=== PATIENT | male | born 1990 | race Caucasian/White ===

== ENCOUNTER 2019-07-02 03:40 | Emergency (ER) | payer SELFPAY ==
[2019-07-02 03:46] VITALS: BP 141/83; PULSE 71; RESP 16; TEMP 36.6; O2SAT 97; BMI 26.5
--- NOTE | 2019-07-02 03:47 | ED_ITS ---
Entered by Tammy Colbert, acting as scribe for Rosemarie Connor HPI - Headache General: Chief Complaint: Headache Stated Complaint: GARRETT Time Seen by Provider: 07/02/19 03:47 Source: patient Mode of arrival: ambulatory Limitations: no limitations History of Present Illness: HPI Narrative: 29 yo m came to the er for a headache, neck pain, sore throat and a toothache. Onset was last night. MD elicited complaint: headache Onset (ago): day(s) (last night) Onset description: suddenly Severity: mild Quality & Timing: aching and sharp Associated symptoms: Reports no associated symptoms Treatments prior to arrival: none Review of Systems General: Reports: other (negative unless marked) ENMT: Reports: throat pain and dental pain Neuro: Reports: headache PFSH ED PFSH: Social History Smoking and tobacco status: current every day smoker Physical Exam Const: COMMON NORMALS: no apparent distress, oriented x3, no limitations, healthy appearing and well nourished EXAM LIMITATIONS: no altered mental status GENERAL APPEARANCE: cooperative, well kempt and well developed ORIENTATION/CONSCIOUSNESS: Yes awake HENMT: COMMON NORMALS: normocephalic, head/scalp atraumatic, hearing grossly normal bilaterally, external ears normal, EAC's normal, external nose normal and moist oral mucous membranes HEAD & SCALP: normal to inspection, normocephalic and atraumatic FACE & SINUS: normal facial exam, face symmetric and other (Lower mandibular swelling. No lymph node involvement of the sternocleidomastoid anterior posterior chain.) NOSE: external nose normal and nares normal EXTERNAL EAR: Yes external ears normal EXTERNAL AUDITORY CANAL: EAC's normal OTHER: Right inferior most posterior molar with obvious dental carry. No obvious dental abscess. Eye: COMMON NORMALS: PERRL, EOMs intact bilaterally, conjunctivae normal and no scleral icterus GENERAL EYE: normal appearance of both eyes and normal light reflex CONJUNCTIVA: Yes conjunctivae normal SCLERA: sclerae normal CORNEA: Yes corneas normal PUPIL: Yes PERRL DIRECT OPHTHALMOSCOPY: Yes normal light reflex Neck/C-Spine: COMMON NORMALS: full ROM, no lymphadenopathy, supple, no meningeal signs and no JVD GENERAL: Yes normal visual inspection and Yes trachea midline CERVICAL SPINE: Yes cervical ROM normal Chest: COMMONS NORMALS: inspection of chest normal and palpation of chest normal Resp: COMMON NORMALS: normal respiratory effort, no retractions, no use of accessory muscles and clear to auscultation bilaterally EFFORT & INSPECTION: Yes able to speak in complete sentences AUSCULTATION: clear to auscultation bilaterally Cardio: COMMON NORMALS: no JVD, regular rate, regular rhythm, S1 normal heart sound, S2 normal heart sound, no gallops, no clicks, no murmurs and no rub JUGULAR VENOUS DISTENTION: no JVD RATE: regular rate RHYTHM: regular rhythm HEART SOUNDS: S1 normal and S2 normal GI: COMMON NORMALS: soft to palpation, non-tender, no hepatosplenomegaly and no masses INSPECTION: Yes normal to inspection PALPATION: Yes soft and Yes no hepatosplenomegaly : COMMON NORMALS: Yes no CVA tenderness BLADDER/KIDNEY EXAM: Yes no CVA tenderness Back/Pelvis: COMMON NORMALS: no CVA tenderness, thoracic and lumbar spine normal to inspection, no thoracic nor lumbar tenderness and thoraco-lumbar ROM normal Extremity: COMMON NORMALS: normal to inspection, full ROM, normal capillary refill, no joint enlargement, no clubbing, cyanosis or edema and no calf tenderness Neuro: COMMON NORMALS: oriented x3, CN's II-XII intact bilaterally, moves all extremities, no focal motor deficits and no sensory deficits noted MENINGEAL SIGNS: Yes no meningeal signs Psych: COMMON NORMALS: mental status grossly normal, thought process normal, cooperative, affect normal, speech normal and activity/motor behavior normal APPEARANCE: Yes well kempt SPEECH: Yes normal speech THOUGHT PROCESS: normal thought process Skin: COMMON NORMALS: no rashes or lesions noted, skin turgor normal, no jaundice, no petechiae and no mottling GENERAL SKIN EXAM: no rashes or lesions noted and turgor normal Course Vital Signs: Vital signs: Vital Signs Temperature 98 F 07/02/19 03:46 Pulse Rate 67 07/02/19 04:28 Respiratory Rate 16 07/02/19 04:28 Blood Pressure 120/76 07/02/19 04:28 Pulse Oximetry 97 07/02/19 04:28 MDM - Headache MDM Narrative: Medical decision making narrative: Gilson comes in with a headache caused by a bad tooth on the right side. There is no sign of Sang's angina, deep space infection, airway involvement or otherwise. We will treat his pain here but also address his underlying condition. Discharge Plan Discharge Patient Disposition: Home, Self-Care Clinical Impression: Pain, dental Headache Qualifiers: Headache type: unspecified Headache chronicity pattern: acute headache Intractability: not intractable Qualified Code(s): R51 - Headache Condition: Stable Prescriptions: [place] 5-325 mg tablet 1 tab PO Q6H PRN (Reason: pain) 5 Days Qty: 8 RF: 0 Cleocin HCl 150 mg capsule 300 mg PO Q6H 10 Days Qty: 80 RF: 0 Discharge Orders: Discharge Order (Routine); Ordered 07/02/19 Ordered By: Rosemarie Connor Discharge Diet: Advance as tolerated Discharge Activity: Increase activity as tolerated Patient Instructions: Dental Caries (Cavities), Dental Caries (ED) Activity Restrictions/Additional Instructions: Please return to the ER immediately for any of the signs or symptoms listed on your discharge instruction sheets, worsening/changing of your symptoms, you are not getting better as quickly as expected, or for ANY other cause or concerns. Discharge Date/Time: 07/02/19 04:25 Coding Level of Care Code ED Attending Anesthesiologist for g Fwd The documentation recorded by the Filemon stanley Stephanie Lyn, accurately reflects the service I personally performed and the decisions made by Nikolas gleason Eli N Jul 02, 2019 03:40
--- NOTE | 2019-07-02 04:06 | PC.NURSE ---
Introduced self to patient and initiated vital signs. Patient presents A&O x 4. NAD, ABCs intact, MAEW and agreeable to treatment. Respirations are even and unlabored. Pt states that the chief complaint for the ER visit today is due to headache and jaw pain from infected tooth Pt denies any vision disturbances or lightheadedness. Bed left in lowest position in semi-fowlers with side rails up.Reassured patient of needs and will continue to monitor.
[2019-07-02] MEDS: clindamycin 150 mg Capsule 300 MG PO (04:13)
[2019-07-02] MEDS: HYDROcodone-acetaminophen 5-325 mg Tablet 1 TAB PO (04:13)
[2019-07-02] MEDS: ketorolac 60 mg/2 mL INJ IM (04:15)
[2019-07-02] MEDS: penicillin g (L-A) 1,200,000 unit/2 mL Syr 1200000 UNIT IM (04:15)
[2019-07-02 04:28] VITALS: BP 120/76; PULSE 67; RESP 16; O2SAT 97
== END 2019-07-02 05:03 | disposition home or self-care (01) ==
PROVIDERS: Emergency Provider Emergency Medicine
DX: K08.89 Other specified disorders of teeth and supporting structures (principal); R51 Headache; F17.200 Nicotine dependence, unspecified, uncomplicated
CPT/HCPCS: 96372; 99281; 99283; J0561; J1885

== ENCOUNTER 2020-06-26 11:22 | Emergency (ER) | payer SELFPAY ==
[2020-06-26 11:28] VITALS: BP 129/75; PULSE 73; RESP 14; TEMP 36.7; O2SAT 99; BMI 26.5
--- NOTE | 2020-06-26 11:37 | W.ED.MALEGU ---
HPI - Male Genitourinary General: Chief complaint: Urogenital-Male Stated complaint: BLOOD IN URINE Time Seen by Provider: 06/26/20 11:32 Source: patient Mode of arrival: ambulatory Limitations: no limitations History of Present Illness: HPI Narrative: Patient is a 30-year-old male who presents to ED today with a complaint of hematuria that he noticed this morning. According to patient he has had 2 episodes of urination today that started with normal stream set but ended with a small amount of dark red blood. He is complaining of some very mild dysuria. When asked specifically about flank pain he states he is having a small amount of pain to the right side of his back but states I normally have pain all over from working . No history of nephrolithiasis. He is not having any genital lesions or penile discharge. He does report unprotected intercourse with a new sexual partner recently. Denies testicular pain/swelling. No fevers. MD Complaint: other (hematuria ) Onset (ago): hour(s) Severity: mild Associated symptoms: Reports dysuria, hematuria, nausea and vomiting (x 1 today); Deny urinary incontinence Review of Systems Const: Denies: fever(s), chills, body aches, fatigue or malaise Card: Denies: chest pain Resp: Denies: dyspnea GI: Reports: nausea and vomiting (x 1 today); Denies: abdominal pain, change in bowel habits or change in stool character : Reports: dysuria and hematuria; Denies: flank pain, difficulty urinating, urinary frequency, urinary urgency, urinary hesitancy, urinary dribbling, urinary incontinence, genital pain, genital lesions, penile discharge, testicular pain or scrotal swelling Musc: Reports: back pain (R lower back pain); Denies: neck pain, extremity pain, extremity swelling, joint pain or joint swelling Skin/Breast: Denies: rash Neuro: Denies: headache(s), numbness in extremities, weakness in extremities or sensory changes PFSH ED PFSH: Social History Smoking and tobacco status: current every day smoker Physical Exam Const: COMMON NORMALS: no acute distress, average body habitus, patient oriented x3, no limitations, healthy appearing, alert and well nourished HENMT: COMMON NORMALS: normocephalic and atraumatic HEAD & SCALP: normocephalic and atraumatic GI: COMMON NORMALS: Normal to inspection, nondistended, normoactive bowel sounds present, Soft to palpation, No hepatosplenomegaly present and no masses INSPECTION: Yes normal to inspection PALPATION: Yes Soft to palpation, Yes Tenderness to palpation present (GI) (mild suprapubic) and Yes No hepatosplenomegaly present : COMMON NORMALS: Yes no CVA tenderness (mild tenderness to R lower back) BLADDER/KIDNEY EXAM: Yes no CVA tenderness (mild tenderness to R lower back) Back/Pelvis: COMMON NORMALS: no CVA tenderness (mild tenderness to R lower back), thoracic and lumbar spine normal to inspection, no thoracic nor lumbar tenderness and thoraco-lumbar ROM normal Neuro: COMMON NORMALS: patient oriented x3 SENSORIUM/ORIENTATION: Yes alert Skin: COMMON NORMALS: no rashes or lesions noted GENERAL SKIN EXAM: no rashes or lesions noted Course Vital Signs: Vital signs: Vital Signs Temperature 98.0 F 06/26/20 11:28 Pulse Rate 73 06/26/20 11:28 Respiratory Rate 14 06/26/20 11:28 Blood Pressure 129/75 06/26/20 11:28 Pulse Oximetry 99 06/26/20 11:28 MDM - Male MDM Narrative: Medical decision making narrative: Patient does not complain of any penile discharge. He states dysuria is minimal. He denies any concern for STDs related to his recent sexual encounter. Urine is leukocyte negative. At this time it does not sound suspicious for STD-will go ahead and run chlamydia/gonorrhea test off his urine and he will be called with results if positive. CT scan was negative for stone. Blood work is non-concerning. Will refer him to Dr. Mitchell for further evaluation. Return to ED precautions given. Lab Data: Labs: Lab Results 06/26/20 06/26/20 06/26/20 Range/Units 11:44 12:15 12:15 WBC 10.4 H (4.0-10.0) 10^3/ uL RBC 5.26 (4.1-5.3) 10^6/u L Hgb 16.3 (11.7-16.6) g/dL Hct 47.5 (42.0-52.0) % MCV 90.3 (80-94) fL MCH 31.0 (28.0-34.0) pg MCHC 34.3 (30.0-36.0) g/dL RDW 12.3 (12.1-15.1) % Plt Count 190 (130-400) 10^3/c mm MPV 10.7 H (7.4-10.4) fL Neut % (Auto) 70.9 % Lymph % (Auto) 20.0 % [place] % (Auto) 6.0 % Eos % (Auto) 2.3 % Baso % (Auto) 0.5 % Neut # (Auto) 7.35 (1.8-7.7) 10^3/u L Lymph # (Auto) 2.1 (0.8-4.8) 10^3/u L [place] # (Auto) 0.6 (0.2-0.9) 10^3/u L Eos # (Auto) 0.2 (0.0-0.8) 10^3/u L Baso # (Auto) 0.1 (0.0-0.1) 10^3/u L Nucleated RBC % (a uto) 0 % Nucleated RBCs # 0.0 /100WBC Sodium 137 (136-145) mmol/L Potassium 4.3 (3.5-5.1) mmol/L Chloride 104 (98-107) mmol/L Carbon Dioxide 24 (22-29) mmol/L Anion Gap 13.3 (5-19) BUN 11 (6-20) mg/dL Creatinine 0.8 (0.7-1.2) mg/dL GFR Calculation 112.8 (90-130) mL/min Glucose 87 (65-115) mg/dL Calculated Osmolal ity 283 L (285-295) mOsm/k g Calcium 9.3 (8.5-10.5) mg/dL Urine Color Yellow (Yellow) Urine Appearance Clear (CLEAR) Urine pH 5 (5-7) Ur Specific Gravit y 1.025 (1.005-1.030) Urine Protein Neg (Negative) Urine Glucose (UA) Norm (Normal) Urine Ketones Negative (Negative) Urine Blood 2+ H (Negative) Urine Nitrate Negative (Negative) Urine Bilirubin Neg (Negative) Urine Urobilinogen Norm (Negative) mg/dL Ur Leukocyte Angela ase Negative (Negative) Urine RBC 0-4 H (0-2) /hpf Urine WBC 5-10 H (0-5) /hpf Ur Squamous Epith Cells None (0-5) /hpf Amorphous Sediment Not Reportable Urine Bacteria Trace (NONE) /hpf Urine Mucus 1+ /hpf Imaging Data: CT renal: Radiologist's impression: [address] [address] [address] Scan Report Signed Patient: Jose Yates Unit #: [id number] : 1990 Age/Sex: 30 / M ADM Date: 06/26/20 Loc: ER Room/Bed: Attending Dr: Ordering Provider/Ordering MD: Tessa Everett Date of Service: 06/26/20 Procedure(s): CT kidney stone 48847 Accession Number(s): [id number] Report Number: [id number] WS: [id number] CT ABDOMEN AND PELVIS NONCONTRAST HISTORY: R back pain; hematuria TECHNIQUE: Imaging performed through the abdomen and pelvis. Coronal and sagittal reformats are submitted. All CT scans at [facility] use at least one of these dose optimization techniques: automated exposure control; mA and/or kV adjustment per patient size (includes targeted exams where dose is matched to clinical indication); or iterative reconstruction. DLP: 1317.25 mGy.cm COMPARISON: None available. Lower thorax: Lung bases are clear. Visualized heart is normal. No hiatal hernia. Liver: Normal size liver. No mass or bile duct dilatation. Gallbladder: Normal gallbladder. Pancreas: Normal size and attenuation. Normal pancreatic duct. No pancreatitis or mass. Spleen: Normal. Adrenal glands: Normal. No mass. Right kidney: Normal size kidney with no mass or hydronephrosis. Left kidney: Normal size kidney with no mass or hydronephrosis. Aorta: Normal abdominal aorta, no aneurysm or atherosclerosis. No free fluid, intraperitoneal air or significant lymphadenopathy.. Shotty retroperitoneal lymph nodes. GI tract: Normal appendix. No GI tract obstruction or diverticulosis. Abdominal wall: Negative. No hernia. Pelvis: Prostate gland calcifications. Mild enlargement of the seminal vesicles. Negative urinary bladder. Osseous structures: Unremarkable. CT/CT kidney stone [id number] IMPRESSION: 1. No renal calcifications or obstruction. 2. Normal appendix. 3. No acute abdominal abnormalities. Dictated By: Germania Dunn DO Signed By: Germania Dunn DO Signed Date/Time: 06/26/20 1228 DD/ 1225 Discharge Plan Discharge Patient Disposition: Home Clinical Impression: Hematuria Qualifiers: Hematuria type: gross Qualified Code(s): R31.0 - Gross hematuria Condition: Stable Prescriptions: No Action No Known Home Medications RF: 0 Discharge Orders: Discharge ED (Routine); Ordered 06/26/20 Ordered By: Tessa Everett Referrals: Chuck Mitchell MD [Physician] - Patient Instructions: Opioid Safety Activity Restrictions/Additional Instructions: [employer] is committed to fighting the nationwide opiate epidemic. We are providing ALL patients with information regarding opiate safety. If you received opiate pain medication during your stay or if you received a prescription for opiate pain medication-please review this handout. If not, you may disregard. Thank you. As discussed we will refer you to Dr. Mitchell/urology for further evaluation of your hematuria. Need to return to the emergency department for severe flank pain, fevers greater than 100.4, severe abdominal pain, or any other concerns you may have. Coding Level of Care Code ED Jitterbug Operator for Jackig Fwd Exam Detailed
[2020-06-26 12:05] LABS: Glucose Urine UA Norm (Normal); Ketones Urine Negative (Negative); Protein Urine Neg (Negative); Specific Gravity, Urine 1.025 (1.005-1.030); Urine Appearance Clear (CLEAR); Urine Color Yellow (Yellow); pH Urine 5 (5-7)
[2020-06-26 12:07] LABS: Add Urine Microscopic? YES; Bilirubin Urine Neg (Negative); Blood Urine 2+ (Negative); Leukocyte Esterase Urine Negative (Negative); Nitrate Urine Negative (Negative); Urobilinogen Urine Norm (Negative)
[2020-06-26 12:11] LABS: RBC Urine 0-4 /hpf (0-2)
[2020-06-26 12:12] LABS: Bacteria Urine TRACE /hpf
--- NOTE | 2020-06-26 12:12 | CT_ITS ---
WS: [id number] CT ABDOMEN AND PELVIS NONCONTRAST HISTORY: R back pain; hematuria TECHNIQUE: Imaging performed through the abdomen and pelvis. Coronal and sagittal reformats are submi tted. All CT scans at [facility] use at least one of these dose optimization techniques: automated exposure control; mA and/or kV adjustment per patient size (includes targeted exams where d ose is matched to clinical indication); or iterative reconstruction. DLP: 1317.25 mGy.cm COMPARISON: None available. Lower thorax: Lung bases are clear. Visualized heart is normal. No hiatal hernia. Liver: Normal size liver. No mass or bile duct dilatation. Gallbladder: Normal gallbladder. Pancreas: Normal size and attenuation. Normal pancreatic duct. No pancreatitis or mass. Spleen: Normal. Adrenal glands: Normal. No mass. Right kidney: Normal size kidney with no mass or hydronephrosis. Left kidney: Normal size kidney with no mass or hydronephrosis. Aorta: Normal abdominal aorta, no aneurysm or atherosclerosis. No free fluid, intraperitoneal air or significant lymphadenopathy.. Shotty retroperitoneal lymph node s. GI tract: Normal appendix. No GI tract obstruction or diverticulosis. Abdominal wall: Negative. No hernia. Pelvis: Prostate gland calcifications. Mild enlargement of the seminal vesicles. Negative urinary shayna dder. Osseous structures: Unremarkable. CT/CT kidney stone [id number] IMPRESSION: 1. No renal calcifications or obstruction. 2. Normal appendix. 3. No acute abdominal abnormalities.
[2020-06-26 12:13] LABS: Add Urine Culture? No; Mucus Urine 1+ /hpf
[2020-06-26 12:20] LABS: Basophils # 0.1 10^3/uL (0.0-0.1); Basophils % 0.5 %; Eosinophils # 0.2 10^3/uL (0.0-0.8); Eosinophils % 2.3 %; Hematocrit 47.5 % (42.0-52.0); Hemoglobin 16.3 g/dL (11.7-16.6); Lymphocytes # 2.1 10^3/uL (0.8-4.8); Mean Corpuscular HGB Conc 34.3 g/dL (30.0-36.0); Mean Corpuscular Volume 90.3 fL (80-94); Mean Platelet Volume 10.7 fL (7.4-10.4); Monocytes # 0.6 10^3/uL (0.2-0.9); Neutrophils # 7.35 10^3/uL (1.8-7.7); Neutrophils % 70.9 %; Nucleated Red Blood Cells % 0 %; Platelet Count 190 10^3/cmm (130-400); Red Blood Count 5.26 10^6/uL (4.1-5.3); Red Cell Distribution Width 12.3 % (12.1-15.1); White Blood Count 10.4 10^3/uL (4.0-10.0)
[2020-06-26 12:45] LABS: Anion Gap 13.3 (5-19); Blood Urea Nitrogen 11 mg/dL (6-20); Calcium 9.3 mg/dL (8.5-10.5); Carbon Dioxide 24 mmol/L (22-29); Chloride 104 mmol/L (98-107); Glomerular Filtration Rate 112.8 mL/min (90-130); Glucose 87 mg/dL (65-115); Osmolality Calculated 283 mOsm/kg (285-295); Potassium 4.3 mmol/L (3.5-5.1); Sodium 137 mmol/L (136-145)
--- NOTE | 2020-06-28 10:23 | DCPLANNER ---
mobile home park manager had message to schedule a follow up appointment for patient with Dr. Mitchell. mobile home park manager called the office of Dr. Mitchell, spoke with Alyx, gave clinic patients information. mobile home park manager was told that patients information would be printed and reviewed. Clinic will call patient with appointment information.
--- NOTE | 2020-07-11 07:26 | DCPLANNER ---
Patient had a follow up appointment scheduled for 06.29.[address] Mitchell - patient did attend appointment.
== END 2020-06-26 13:12 | disposition home or self-care (01) ==
PROVIDERS: Family Medicine; Emergency Provider Physician Assistant
DX: R31.0 Gross hematuria (principal); F17.210 Nicotine dependence, cigarettes, uncomplicated
CPT/HCPCS: 74176; 80048; 81001; 85025; 87491; 87591; 99283

== ENCOUNTER → 2020-06-29 09:07 | Outpatient (BNVA) | payer SELFPAY | PROVIDERS: PCP Urology; Visit Provider Urology | DX: R31.0 Gross hematuria (principal) | CPT/HCPCS: 81003 ==

== ENCOUNTER → 2020-12-13 13:48 | Outpatient (BNVA) | payer OTHER, SELFPAY | PROVIDERS: PCP Urology; Visit Provider Nurse Practitioner | DX: M25.562 Pain in left knee (principal) | CPT/HCPCS: 73562 ==

== ENCOUNTER 2021-02-07 12:42 | Outpatient (CLI) | payer OTHER, SELFPAY ==
--- NOTE | 2021-02-07 12:58 | MR_ITS ---
WS: [id number] MRI LEFT KNEE NONCONTRAST TECHNIQUE: Axial PD, coronal PD fat sat, coronal PD, sagittal PD, and sagittal PD fat-sat images obta ined. CLINICAL INFORMATION: LEFT KNEE SPRAIN COMPARISON: None. FINDINGS: Distal quadriceps and patella tendons are intact. Small amount of prepatellar and infrapatellar subcu taneous soft tissue edema. Normal bone marrow signal in the femoral condyles and tibial plateau. Smal l suprapatellar effusion. Normal ACL and PCL. Normal lateral meniscus. Radial tear involving the posterior horn medial meniscus extending to the articular surface. Radial tear involving the anterior horn medial meniscus. Menisca l tear extends to the meniscal root with blunting of anterior posterior horns. Associated fluid signa l. No significant chondromalacia patella. Normal patella. Normal medial and lateral collateral ligaments . Mild chondromalacia involving the medial lateral joint compartments. Normal popliteal fossa. MR/MR knee LT wo con* [id number] IMPRESSION: 1. Normal ACL and PCL. 2. Acute appearing radial tears involving the anterior and posterior horn medi al meniscus extending to the meniscal root with blunting. Associated fluid sign al abnormality. 3. Normal lateral meniscus. 4. Small suprapatellar effusion. 5. No other acute findings. Outbridge grading:
== END 2021-02-07 12:43 | disposition home or self-care (01) ==
PROVIDERS: PCP Urology; Visit Provider Physical Medicine & Rehabilitation
DX: S83.92XA Sprain of unspecified site of left knee, initial encounter (principal); S83.242A Other tear of medial meniscus, current injury, left knee, initial encounter; X58.XXXA Exposure to other specified factors, initial encounter; M25.462 Effusion, left knee
CPT/HCPCS: 73721

== ENCOUNTER 2021-10-01 09:21 | Emergency (ER) | payer SELFPAY ==
--- NOTE | 2021-10-01 09:29 | XR_ITS ---
WS: [id number] PORTABLE CHEST HISTORY: chest pain COMPARISON: 05/16/2007 Lungs are clear and well expanded. No pleural effusion or pneumothorax. Cardiac size: Normal. Mediastinum/Aorta: Normal mediastinum. No osseous abnormality seen. XR/XR chest 1V portable [id number] IMPRESSION: Unremarkable portable chest.
[2021-10-01 09:30] VITALS: BP 125/91; PULSE 59; RESP 21; TEMP 36.8; O2SAT 98; BMI 25.1
--- NOTE | 2021-10-01 09:35 | ECG_ITS ---
[facility] Test Date: 2021-10-01 Pat Name: Jose Yates Department: Room: Gender: Male Hands And Dial Inspector: : 1990 Requested By: Tessa Everett Order Number: [id number] Demetrius MD: Carlitos Owen M.D. Measurements Intervals [place] Rate: 54 P: 41 NC: 132 QRS: 91 QRSD: 97 T: 68 QT: 474 QTc: 453 Interpretive Statements SINUS BRADYCARDIA BORDERLINE RIGHT AXIS DEVIATION [QRS AXIS > 90] PROLONGED QT INTERVAL No previous ECG available for comparison Electronically Signed On 10-01-2021 17:28:24 CDT by Carlitos Owen M.D. [id number]
--- NOTE | 2021-10-01 09:36 | W.ED.ABDPA2 ---
HPI - Abdominal Pain General: Chief Complaint: Abdominal Pain Stated Complaint: SOB/chest pain/vomiting/sternum pain Time Seen by Provider: 10/01/21 09:22 Source: patient Mode of arrival: ambulatory Limitations: no limitations History of Present Illness: Patient is a 31-year-old male who presents to ED today with a complaint of epigastric abdominal pain radiating up into his chest. Patient states he has been drinking heavily over the past few days and has not been eating or drinking adequately because of this. He states this morning he has multiple episodes of nonbloody nonbilious emesis. He does not complain of changes to his bowel movements and has not noticed any bloody or dark stools. He is not having pain anywhere else in his abdomen apart from his epigastric region. He states chest pain is substernal and seems to radiate from the abdomen. He complains of a little dyspnea but states this is chronic/baseline x years and attributes it to smoking. Patient has no history of GI bleeds. No heavy NSAID use. He has no significant PMH and currently takes no medications. MD elicited complaint: abdominal pain and other (N/V) Pertinent past history: none Onset (ago): hour(s) Pain Consistency: constant Location: Epigastric Severity: moderate Quality: cramping and sharp Migration to: no migration Exacerbating factors: other (attempting to eat/drink) Relieving factors: nothing Context: other (recent heavy etoh use) Associated Symptoms: Reports nausea and vomiting; Denies change in bowel habits, chills, diarrhea, dysuria, fever(s), hematochezia, hematuria, hematemesis, melena and syncope Review of Systems Const: Denies: fever(s), chills, body aches, fatigue or malaise Card: Reports: chest pain; Denies: palpitations, irregular heart rhythm, edema, swelling of feet/ankles, lightheadedness, syncope, pre-syncope, dyspnea on exertion, orthopnea, leg pain with exertion or acrocyanosis Resp: Reports: productive cough (chronic (years)-states from smoking); Denies: wheezing or hemoptysis GI: Reports: abdominal pain, nausea and vomiting; Denies: hematemesis, diarrhea, change in bowel habits, hematochezia or melena : Denies: flank pain, dysuria or hematuria Musc: Denies: neck pain, back pain, extremity pain or joint pain Skin/Breast: Denies: rash Neuro: Denies: headache(s), numbness in extremities, weakness in extremities, sensory changes or dizziness Psych: Reports: anxiety PFSH ED PFSH: Medical History Chronic meniscal tear of knee Gross hematuria Tooth abscess Family History Family/Other Diabetes Social History Smoking and tobacco status: current every day smoker Alcohol intake: never Marital status: Single Current occupational status: unemployed Physical Exam Const: COMMON NORMALS: no acute distress, average body habitus, patient oriented x3, no limitations, healthy appearing, alert and well nourished GENERAL APPEARANCE: cooperative and anxious ORIENTATION/CONSCIOUSNESS: Yes awake, Yes oriented to person, Yes oriented to place and Yes oriented to time HENMT: COMMON NORMALS: normocephalic and atraumatic HEAD & SCALP: normal to inspection, normocephalic and atraumatic Neck/C-Spine: COMMON NORMALS: full ROM GENERAL: Yes normal visual inspection and No JVD Chest: COMMONS NORMALS: normal inspection of the chest and normal palpation of entire chest wall Resp: COMMON NORMALS: normal respiratory effort and clear to auscultation bilaterally AUSCULTATION: clear to auscultation bilaterally Cardio: COMMON NORMALS: regular rate and regular rhythm RATE: regular rate RHYTHM: regular rhythm GI: COMMON NORMALS: Normal to inspection, nondistended, normoactive bowel sounds present, Soft to palpation, No hepatosplenomegaly present and no masses INSPECTION: Yes normal to inspection AUSCULTATION: Yes normoactive bowel sounds PALPATION: Yes Soft to palpation, Yes Tenderness to palpation present (GI) and Yes No hepatosplenomegaly present : COMMON NORMALS: Yes no CVA tenderness BLADDER/KIDNEY EXAM: Yes no CVA tenderness Back/Pelvis: COMMON NORMALS: no CVA tenderness Extremity: COMMON NORMALS: normal to inspection, no clubbing, cyanosis or edema, no calf tenderness and no pedal edema GENERAL: Yes normal exam except as noted Neuro: ROS[place] COMA SCALE: document GCS findings [place] coma scale eye opening: Spontaneous [place] coma scale verbal response: Orientated [place] coma scale motor response: Obey commands [place] coma scale total score: 15 COMMON NORMALS: patient oriented x3, moves all extremities, no focal motor deficits, no sensory deficits noted and gait normal SENSORIUM/ORIENTATION: Yes alert, Yes oriented to person, Yes oriented to place and Yes oriented to time Skin: COMMON NORMALS: no rashes or lesions noted GENERAL SKIN EXAM: no rashes or lesions noted Course Vital Signs: Vital signs: Vital Signs Temperature 98.2 F 10/01/21 09:30 Pulse Rate 92 10/01/21 13:01 Respiratory Rate 16 10/01/21 10:03 Blood Pressure 109/74 10/01/21 13:01 Pulse Oximetry 97 10/01/21 13:01 MDM - Abdominal Pain Medical Decision Making Patient's pain/nausea is much improved after IV fluids and pain/nausea medications given here. Vital signs are stable. Patient essentially here with epigastric pain following several days of heavy alcohol use. He denied bloody emesis. He does not have any complaints of bloody or melanotic stools. He is hemodynamically stable. Labs overall are unremarkable. He does have a white count of 17.7 most likely stress reaction from vomiting all morning. Patient's abdomen is nonsurgical. He will be discharged home with protonix, carafate, and promethazine for vomiting. Recommend strict alcohol cessation. Recommend bland liquid diet and advancing as tolerated. Strict return to ED precautions regarding worsening pain, repetitive episodes of vomiting, bloody or coffee-ground emesis, dark or tarry stools, headedness/dizziness/passing out episodes, etc. Patient and mother verbalize understanding. Lab Data : 10/01/21 09:50 10/01/21 09:50 Labs/Radiology: Radiology Impressions Chest X-Ray 10/01/21 09:29 IMPRESSION: Unremarkable portable chest. Laboratory Results WBC 17.7 10^3/uL (4.0-10.0) H 10/01/21 09:50 RBC 5.66 10^6/uL (4.1-5.3) H 10/01/21 09:50 Hgb 17.3 g/dL (11.7-16.6) H 10/01/21 09:50 Hct 51.2 % (42.0-52.0) 10/01/21 09:50 MCV 90.5 fl (80-94) 10/01/21 09:50 MCH 30.6 pg (28.0-34.0) 10/01/21 09:50 MCHC 33.8 g/dL (30.0-36.0) 10/01/21 09:50 RDW 12.2 % (12.1-15.1) 10/01/21 09:50 Plt Count 230 10^3/cmm (130-400) 10/01/21 09:50 MPV 10.9 fL (7.4-10.4) H 10/01/21 09:50 Neut % (Auto) 85.6 % 10/01/21 09:50 Lymph % (Auto) 8.5 % 10/01/21 09:50 [place] % (Auto) 4.1 % 10/01/21 09:50 Eos % (Auto) 1.2 % 10/01/21 09:50 Baso % (Auto) 0.3 % 10/01/21 09:50 Neut # (Auto) 15.13 10^3/uL (1.8-7.7) H 10/01/21 09:50 Lymph # (Auto) 1.5 10^3/uL (0.8-4.8) 10/01/21 09:50 [place] # (Auto) 0.7 10^3/uL (0.2-0.9) 10/01/21 09:50 Eos # (Auto) 0.2 10^3/uL (0.0-0.8) 10/01/21 09:50 Baso # (Auto) 0.1 10^3/uL (0.0-0.1) 10/01/21 09:50 Nucleated RBC % (auto) 0 % 10/01/21 09:50 Nucleated RBCs # 0.0 /100WBC 10/01/21 09:50 Sodium 140 mmol/L (136-145) 10/01/21 09:50 Potassium 4.1 mmol/L (3.5-5.1) 10/01/21 09:50 Chloride 103 mmol/L (98-107) 10/01/21 09:50 Carbon Dioxide 22 mmol/L (22-29) 10/01/21 09:50 Anion Gap 19.1 (5-19) H 10/01/21 09:50 BUN 10 mg/dL (6-20) 10/01/21 09:50 Creatinine 0.9 mg/dL (0.7-1.2) 10/01/21 09:50 GFR Calculation 97.8 mL/min (90-130) 10/01/21 09:50 Glucose 121 mg/dL (65-115) H 10/01/21 09:50 Calculated Osmolality 290 mOsm/kg (285-295) 10/01/21 09:50 Calcium 8.6 mg/dL (8.5-10.5) 10/01/21 09:50 Total Bilirubin 0.5 mg/dL (0.15-1.2) 10/01/21 09:50 AST 23 U/L (0-40) 10/01/21 09:50 ALT 19 U/L (0-41) 10/01/21 09:50 Alkaline Phosphatase 103 IU/L (40-130) 10/01/21 09:50 Total Protein 6.8 g/dL (6.6-8.7) 10/01/21 09:50 Albumin 4.7 g/dL (3.5-5.2) 10/01/21 09:50 Globulin 2.1 g/dL (1.3-4.6) 10/01/21 09:50 Lipase 15 U/L (13-60) 10/01/21 09:50 Urine Color Dark yellow (Yellow) 10/01/21 10:10 Urine Appearance Clear (CLEAR) 10/01/21 10:10 Urine pH 5 (5-7) 10/01/21 10:10 Ur Specific [place] 1.025 (1.005-1.030) 10/01/21 10:10 Urine Protein Neg (Negative) 10/01/21 10:10 Urine Glucose (UA) Norm (Normal) 10/01/21 10:10 Urine Ketones 1+ (Negative) H 10/01/21 10:10 Urine Blood Neg (Negative) 10/01/21 10:10 Urine Nitrate Negative (Negative) 10/01/21 10:10 Urine Bilirubin Neg (Negative) 10/01/21 10:10 Urine Urobilinogen Norm mg/dL (Negative) 10/01/21 10:10 Ur Leukocyte Esterase Negative (Negative) 10/01/21 10:10 Discharge Plan Discharge Patient Disposition: Home Clinical Impression: Alcoholic gastritis Qualifiers: Chronicity: acute Gastritis bleeding: without bleeding Qualified Code(s): K29.20 - Alcoholic gastritis without bleeding Condition: Stable Prescriptions: New Carafate 1 gram tablet 1 g PO TID 14 Days Qty: 42 0RF Protonix 40 mg tablet,delayed release (DR/EC) 40 mg PO DAILY 14 Days Qty: 14 0RF promethazine 50 mg tablet 50 mg PO Q6H PRN (Reason: nausea/vomiting) Qty: 14 0RF No Action ibuprofen 200 mg Tablet 400 - 800 mg PO Q6H PRN (Reason: Pain) 0RF Discharge Orders: Discharge ED (Routine); Ordered 10/01/21 Ordered By: Tessa Everett Patient Instructions: Gastritis (ED), Gastritis (DC) Coding Level of Care Code ED Employee Training Specialist for Chg Fwd Exam Comprehensive
[2021-10-01] MEDS: LORazepam 2 mg/mL INJ 1 mL 1 MG IVP (10:00)
[2021-10-01 10:03] VITALS: BP 125/65; PULSE 64; RESP 16; O2SAT 95
[2021-10-01] MEDS: ondansetron 2 mg/ML SDV 2 mL 4 MG IVP (10:03)
[2021-10-01 10:18] LABS: Basophils # 0.1 10^3/uL (0.0-0.1); Basophils % 0.3 %; Eosinophils # 0.2 10^3/uL (0.0-0.8); Eosinophils % 1.2 %; Hematocrit 51.2 % (42.0-52.0); Hemoglobin 17.3 g/dL (11.7-16.6); Lymphocytes # 1.5 10^3/uL (0.8-4.8); Lymphocytes % 8.5 %; Mean Corpuscular HGB Conc 33.8 g/dL (30.0-36.0); Mean Corpuscular Hemoglobin 30.6 pg (28.0-34.0); Mean Corpuscular Volume 90.5 fl (80-94); Mean Platelet Volume 10.9 fL (7.4-10.4); Monocytes # 0.7 10^3/uL (0.2-0.9); Monocytes % 4.1 %; Neutrophils # 15.13 10^3/uL (1.8-7.7); Neutrophils % 85.6 %; Nucleated Red Blood Cells % 0 %; Platelet Count 230 10^3/cmm (130-400); Red Blood Count 5.66 10^6/uL (4.1-5.3); Red Cell Distribution Width 12.2 % (12.1-15.1); White Blood Count 17.7 10^3/uL (4.0-10.0)
[2021-10-01] MEDS: sodium chloride 0.9% 1,000 ML 999 ML IV (10:24)
[2021-10-01 10:27] LABS: Alanine Aminotransferase 19 U/L (0-41); Albumin Level 4.7 g/dL (3.5-5.2); Alkaline Phosphatase 103 IU/L (40-130); Aspartate Amino Transferase 23 U/L (0-40); Blood Urea Nitrogen 10 mg/dL (6-20); Calcium 8.6 mg/dL (8.5-10.5); Carbon Dioxide 22 mmol/L (22-29); Chloride 103 mmol/L (98-107); Creatinine Clr Calc Pharmacy 125.9193; Globulin 2.1 g/dL (1.3-4.6); Glomerular Filtration Rate 97.8 mL/min (90-130); Glucose 121 mg/dL (65-115); Lipase 15 U/L (13-60); Osmolality Calculated 290 mOsm/kg (285-295); Sodium 140 mmol/L (136-145); Total Bilirubin 0.5 mg/dL (0.15-1.2); Total Protein 6.8 g/dL (6.6-8.7)
[2021-10-01 10:30] VITALS: PULSE 54; O2SAT 99
[2021-10-01 10:32] LABS: Anion Gap 19.1 (5-19)
[2021-10-01 10:33] LABS: Potassium 4.1 mmol/L (3.5-5.1)
[2021-10-01] MEDS: lidocaine 2% viscous 15 ML, aluminum-mag hydrox-simethicon 30 ML, sucralfate oral liq 1 GM PO (10:35)
[2021-10-01 10:40] LABS: Add Urine Microscopic? NO; Charge for UA Resulting for Rev
[2021-10-01 10:50] LABS: Bilirubin Urine Neg (Negative); Blood Urine Neg (Negative); Glucose Urine UA Norm (Normal); Ketones Urine 1+ (Negative); Leukocyte Esterase Urine Negative (Negative); Nitrate Urine Negative (Negative); Protein Urine Neg (Negative); Specific Gravity, Urine 1.025 (1.005-1.030); Urine Appearance Clear (CLEAR); Urine Color Dark Yellow (Yellow); Urobilinogen Urine Norm (Negative); pH Urine 5 (5-7)
[2021-10-01 11:00] VITALS: PULSE 65; O2SAT 96
[2021-10-01] MEDS: metoclopramide 5 mg/mL SDV 2 mL 10 MG IVP (11:10)
[2021-10-01] MEDS: morphine 4 mg/mL SDV 1 mL IVP (11:25)
[2021-10-01 12:00] VITALS: PULSE 62; O2SAT 96
[2021-10-01 13:01] VITALS: BP 109/74; PULSE 92; O2SAT 97
== END 2021-10-01 11:45 | disposition home or self-care (01) ==
PROVIDERS: Emergency Provider Physician Assistant
DX: K29.20 Alcoholic gastritis without bleeding (principal)
CPT/HCPCS: 71045; 80053; 81003; 83690; 85025; 93005; 96361; 96374; 96375; 99284; J2060; J2270; J2405; J2765; J7030

== ENCOUNTER 2023-06-19 07:27 | Emergency (ER) | payer SELFPAY ==
[2023-06-19 07:27] VITALS: PULSE 50; RESP 20; TEMP 37; O2SAT 100; BMI 27.2
[2023-06-19 07:36] VITALS: BP 133/78; PULSE 47; RESP 18; TEMP 36.8; O2SAT 98
--- NOTE | 2023-06-19 07:36 | XR_ITS ---
WS: [id number] XR chest 1V portable [id number] REASON FOR EXAM: SOB FINDINGS: Chest is unchanged compared to 10/01/2021. Thoracic aorta and mediastinum within normal limits. Hilar and perihilar calcified granulomas disease bilaterally. No acute or subacute pulmonary parenchymal or pleural abnormality. No significant abnormality of the bony thorax. IMPRESSION: No acute chest abnormality.
--- NOTE | 2023-06-19 07:47 | ECG_ITS ---
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 Measurements Intervals [place] Rate: 46 P: 79 WI: 143 QRS: 81 QRSD: 94 T: 70 QT: 537 QTc: 470 Interpretive Statements SINUS BRADYCARDIA POSSIBLE RIGHT VENTRICULAR CONDUCTION DELAY [RSR (QR) IN V1/V2] PROLONGED QT INTERVAL Compared to ECG 10/01/2021 09:41:50 No significant changes Electronically Signed On 06-19-2023 11:38:40 DECK HAND by Carlitos Owen M.D. [id number]
--- NOTE | 2023-06-19 07:53 | PC.PHAR ---
pt states he takes no prescription medications-states just takes ibuprofen otc and states uses marijana
[2023-06-19] MEDS: haloperidol inj 5 mg/mL INJ 1 mL 2.5 MG IVP (07:58)
[2023-06-19] MEDS: sodium chloride 0.9% 1,000 ML 999 ML IV (07:58)
[2023-06-19] MEDS: LORazepam 2 mg/mL INJ 10 mL MDV IVP (07:58)
[2023-06-19 08:02] LABS: Basophils # 0.1 10^3/uL (0.0-0.1); Basophils % 0.3 %; Eosinophils # 0.1 10^3/uL (0.0-0.8); Eosinophils % 0.2 %; Hematocrit 52.5 % (37-53); Lymphocytes # 0.6 10^3/uL (0.8-4.8); Lymphocytes % 2.8 %; Mean Corpuscular HGB Conc 33.9 g/dL (30-55); Mean Corpuscular Hemoglobin 31.1 pg (27-33); Mean Corpuscular Volume 91.6 fl (82-101); Mean Platelet Volume 10.7 fL (7.4-10.4); Monocytes # 0.9 10^3/uL (0.2-0.9); Monocytes % 3.9 %; Neutrophils # 20.12 10^3/uL (1.8-7.7); Neutrophils % 92.3 %; Nucleated Red Blood Cells % 0 %; Platelet Count 230 10^3/cmm (157-399); Red Blood Count 5.73 10^6/uL (3.85-5.65); Red Cell Distribution Width 12.1 % (12.1-15.1)
--- NOTE | 2023-06-19 08:04 | ED_ITS ---
HPI - Nausea/Vomiting/Diarrhea 2 General: Chief complaint: Nausea/Vomiting/Diarrhea Stated complaint: nausea Time Seen by Provider: 06/19/23 07:54 Source: patient Mode of arrival: ambulatory History of Present Illness: 33-year-old male presents emergency room cramping abdominal discomfort with nausea and vomiting it worsened throughout the night. He has not really taken anything for it he is not on any prescription medications. He does use marijuana and forms of marijuana cigarettes and vaping on a regular basis. He states he has had problems with abdominal cramping nausea and vomiting in the past but this has been more intense no hematemesis he says he has had some slightly darkened vomitus nothing that looks like wet coffee grounds. Denies melena or hematochezia. No chest pain some mild vague abdominal cramping mostly periumbilical no localizing pain. MD elicited complaint: nausea and vomiting Onset (ago): hour(s) Description of diarrhea: semi-solid Associated nausea: Yes Location of pain: Diffuse Radiation: diffuse Pain consistency: constant Severity: moderate Quality: cramping Exacerbating factors: none Relieving factors: none Associated symtoms: Reports nausea; Denies altered mental status, anxiety, bloating, change in vision, chest pain, cough, diaphoresis, decreased urine output, dizziness, dysuria, epistaxis, fatigue, fecal incontinence, fevers/chills, headache(s), anorexia, malaise, myalgias, numbness, palpitations, rash, short of breath, syncope, tenesmus, tinnitus or weakness Review of Systems 2 Const: Denies: fatigue, malaise or diaphoresis Eyes: Denies: change in vision ENMT: Denies: tinnitus or epistaxis Card: Denies: chest pain, palpitations or syncope Resp: Denies: dyspnea GI: Reports: abdominal pain, nausea, vomiting and diarrhea; Denies: hematemesis, coffee ground emesis, bloating or fecal incontinence : Denies: dysuria, urinary frequency or urinary urgency Musc: Denies: neck pain or back pain Skin/Breast: Denies: rash Neuro: Denies: headache(s) or dizziness Psych: Denies: anxiety PFSH ED 2 PFSH: Medical History Severe dental caries Tooth abscess Chronic meniscal tear of knee Gross hematuria Family History Family/Other Diabetes Social History Smoking and tobacco/nicotine status: current every day tobacco/nicotine user Alcohol intake: never Substance/Drug Use: never Marital status: Single Current occupational status: unemployed Physical Exam 2 Const: COMMON NORMALS: no acute distress EXAM LIMITATIONS: no altered mental status GENERAL APPEARANCE: cooperative and comfortable O RIENTATION/CONSCIOUSNESS: Yes awake, Yes oriented to person, Yes oriented to place and Yes oriented to time HENMT: COMMON NORMALS: normocephalic, atraumatic and hearing grossly normal bilaterally HEAD & SCALP: normocephalic and atraumatic Resp: COMMON NORMALS: normal respiratory effort, No retractions, No use of accessory muscles and clear to auscultation bilaterally AUSCULTATION: clear to auscultation bilaterally Cardio: COMMON NORMALS: regular rate, regular rhythm and No murmurs present (Cardio) RATE: regular rate RHYTHM: regular rhythm GI: COMMON NORMALS: Soft to palpation and No hepatosplenomegaly present A USCULTATION: Yes normoactive bowel sounds PALPATION: Yes Soft to palpation, No Tenderness to palpation present (GI), No Guarding due to palpation present (GI) and Yes No hepatosplenomegaly present Extremity: COMMON NORMALS: normal to inspection, capillary refill normal, no clubbing, cyanosis or edema, no calf tenderness and no pedal edema Neuro: SENSORIUM/ORIENTATION: Yes oriented to person, Yes oriented to place and Yes oriented to time Skin: COMMON NORMALS: no rashes or lesions noted GENERAL SKIN EXAM: no rashes or lesions noted Course 2 Vital Signs: Vital signs: Vital Signs Temperature 98.2 F 06/19/23 07:36 Pulse Rate 58 L 06/19/23 10:21 Respiratory Rate 18 06/19/23 10:21 Blood Pressure 133/78 06/19/23 07:36 Pulse Oximetry 98 06/19/23 10:21 Oxygen Delivery Me thod Room Air 06/19/23 10:21 MDM - Nausea/Vomiting/Diarrhea Medical Decision Making Hyperemesis likely secondary to marijuana use. Improved with fluids and medications given discussed ways to avoid symptoms in the future given olanzapine and Ativan to use as needed at home follow-up as needed Medical Records I reviewed the patient's medical records. Lab Data I reviewed the patient's lab results. 06/19/23 07:51 06/19/23 07:51 Laboratory Results WBC 21.80 10^3/uL (3.29-11.43) H 06/19/23 07:51 RBC 5.73 10^6/uL (3.85-5.65) H 06/19/23 07:51 Hgb 17.80 g/dL (11.27-16.99) H 06/19/23 07:51 Hct 52.5 % (37-53) 06/19/23 07:51 MCV 91.6 fl (82-101) 06/19/23 07:51 MCH 31.1 pg (27-33) 06/19/23 07:51 MCHC 33.9 g/dL (30-55) 06/19/23 07:51 RDW 12.1 % (12.1-15.1) 06/19/23 07:51 Plt Count 230 10^3/cmm (157-399) 06/19/23 07:51 MPV 10.7 fL (7.4-10.4) H 06/19/23 07:51 Neut % (Auto) 92.3 % 06/19/23 07:51 Lymph % (Auto) 2.8 % 06/19/23 07:51 [place] % (Auto) 3.9 % 06/19/23 07:51 Eos % (Auto) 0.2 % 06/19/23 07:51 Baso % (Auto) 0.3 % 06/19/23 07:51 Neut # (Auto) 20.12 10^3/uL (1.8-7.7) H 06/19/23 07:51 Lymph # (Auto) 0.6 10^3/uL (0.8-4.8) L 06/19/23 07:51 [place] # (Auto) 0.9 10^3/uL (0.2-0.9) 06/19/23 07:51 Eos # (Auto) 0.1 10^3/uL (0.0-0.8) 06/19/23 07:51 Baso # (Auto) 0.1 10^3/uL (0.0-0.1) 06/19/23 07:51 Nucleated RBC % (auto) 0 % 06/19/23 07:51 Nucleated RBCs # 0.0 /100WBC 06/19/23 07:51 Sodium 139 mmol/L (136-145) 06/19/23 07:51 Potassium 4.5 mmol/L (3.5-5.1) 06/19/23 07:51 Chloride 101 mmol/L (98-107) 06/19/23 07:51 Carbon Dioxide 22 mmol/L (22-29) 06/19/23 07:51 Anion Gap 20.5 (5-19) H 06/19/23 07:51 BUN 17 mg/dL (6-20) 06/19/23 07:51 Creatinine 0.9 mg/dL (0.7-1.2) 06/19/23 07:51 GFR Calculation 96.6 mL/min (90-130) 06/19/23 07:51 Glucose 175 mg/dL (65-115) H 06/19/23 07:51 Calculated Osmolality 294 mOsm/kg (285-295) 06/19/23 07:51 Calcium 9.6 mg/dL (8.5-10.5) 06/19/23 07:51 Total Bilirubin 0.8 mg/dL (0.15-1.2) 06/19/23 07:51 AST 21 U/L (0-40) 06/19/23 07:51 ALT 23 U/L (0-41) 06/19/23 07:51 Alkaline Phosphatase 98 U/L (40-130) 06/19/23 07:51 Total Protein 7.8 g/dL (6.6-8.7) 06/19/23 07:51 Albumin 4.9 g/dL (3.5-5.2) 06/19/23 07:51 Globulin 2.9 g/dL (1.3-4.6) 06/19/23 07:51 Urine Color Yellow (Yellow) 06/19/23 08:35 Urine Appearance Clear (CLEAR) 06/19/23 08:35 Urine pH 5 (5-7) 06/19/23 08:35 Ur Specific [place] 1.030 (1.005-1.030) 06/19/23 08:35 Urine Protein Neg (Negative) 06/19/23 08:35 Urine Glucose (UA) Norm (Normal) 06/19/23 08:35 Urine Ketones 2+ (Negative) H 06/19/23 08:35 Urine Blood Neg (Negative) 06/19/23 08:35 Urine Nitrate Negative (Negative) 06/19/23 08:35 Urine Bilirubin Neg (Negative) 06/19/23 08:35 Urine Urobilinogen Norm mg/dL (Negative) 06/19/23 08:35 Ur Leukocyte Esterase Negative (Negative) 06/19/23 08:35 All radiology interpretation(s) finalized by discharge Discharge Plan Discharge Patient Disposition: Home Clinical Impression: Cannabinoid hyperemesis syndrome Condition: Stable Prescriptions: New Ativan 2 mg tablet 2 mg buccal TID PRN (Reason: nausea and vomiting) Qty: 10 0RF olanzapine 10 mg tablet,disintegrating 10 mg PO Q8H PRN (Reason: nausea and vomiting) Qty: 15 0RF No Action ibuprofen 200 mg Tablet 200 - 400 mg PO Q6H PRN (Reason: Pain) Discharge Orders: Discharge ED (Routine); Ordered 06/19/23 Ordered By: Douglas Blankenship Discharge Diet: Usual diet Discharge Activity: Resume usual activity Patient Instructions: Opioid Safety, Pain Management Activity Restrictions/Additional Instructions: Thank you for choosing [facility] for your healthcare needs today. Please realize this is an emergency room and that we are providing you with a medical screening exam and this may not be complete and all inclusive of all the testing and or work up that you may need to determine your ailment or severity of your illness. It is very important that you follow up as instructed or that you return to the Emergency Department should you have concerns or if your condition changes or worsens in any way. Recommend decreasing or abstaining from use of marijuana products Coding Level of Care Code ED Business Economist for Rj Islas
[2023-06-19 08:27] LABS: Alanine Aminotransferase 23 U/L (0-41); Albumin Level 4.9 g/dL (3.5-5.2); Alkaline Phosphatase 98 U/L (40-130); Anion Gap 20.5 (5-19); Aspartate Amino Transferase 21 U/L (0-40); Blood Urea Nitrogen 17 mg/dL (6-20); Calcium 9.6 mg/dL (8.5-10.5); Carbon Dioxide 22 mmol/L (22-29); Chloride 101 mmol/L (98-107); Creatinine Clr Calc Pharmacy 128.0395; Globulin 2.9 g/dL (1.3-4.6); Glomerular Filtration Rate 96.6 mL/min (90-130); Glucose 175 mg/dL (65-115); Osmolality Calculated 294 mOsm/kg (285-295); Potassium 4.5 mmol/L (3.5-5.1); Sodium 139 mmol/L (136-145); Total Bilirubin 0.8 mg/dL (0.15-1.2); Total Protein 7.8 g/dL (6.6-8.7)
[2023-06-19 08:40] VITALS: PULSE 52; RESP 18; O2SAT 100
[2023-06-19 08:43] LABS: Add Urine Microscopic? NO; Charge for UA Resulting for Rev
[2023-06-19 08:48] LABS: Bilirubin Urine Neg (Negative); Blood Urine Neg (Negative); Glucose Urine UA Norm (Normal); Ketones Urine 2+ (Negative); Leukocyte Esterase Urine Negative (Negative); Nitrate Urine Negative (Negative); Protein Urine Neg (Negative); Urine Appearance Clear (CLEAR); Urine Color Yellow (Yellow); Urobilinogen Urine Norm (Negative); pH Urine 5 (5-7)
[2023-06-19 10:21] VITALS: PULSE 58; RESP 18; O2SAT 98
== END 2023-06-19 11:17 | disposition home or self-care (01) ==
PROVIDERS: Emergency Provider Family Medicine
DX: R11.2 Nausea with vomiting, unspecified (principal); F12.90 Cannabis use, unspecified, uncomplicated; Z72.0 Tobacco use
CPT/HCPCS: 36415; 71045; 80053; 81003; 85025; 93005; 96374; 96375; 99285; J1630; J2060; J7030

== ENCOUNTER 2024-08-31 11:25 | Emergency (ER) | payer SELFPAY ==
[2024-08-31 11:39] VITALS: BP 139/84; PULSE 102; RESP 22; TEMP 36.3; O2SAT 99
--- NOTE | 2024-08-31 11:41 | ECG_ITS ---
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 Measurements Intervals [place] Rate: 56 P: 27 [place]: 136 QRS: 73 QRSD: 76 T: 63 QT: 437 QTc: 424 Interpretive Statements SINUS BRADYCARDIA WITH SINUS ARRHYTHMIA Compared to ECG 06/19/2023 07:47:14 Prolonged QT interval no longer present Electronically Signed On 08-31-2024 21:20:24 CDT by Samson Simpson M.D. [id number] [id number]
[2024-08-31 12:01] LABS: Basophils # 0.1 10^3/uL (0.0-0.1); Basophils % 0.5 %; Eosinophils # 0.2 10^3/uL (0.0-0.8); Eosinophils % 1.1 %; Hematocrit 48.3 % (37-53); Lymphocytes # 2.3 10^3/uL (0.8-4.8); Lymphocytes % 13.7 %; Mean Corpuscular HGB Conc 33.5 g/dL (30-55); Mean Corpuscular Hemoglobin 31.6 pg (27-33); Mean Corpuscular Volume 94.3 fl (82-101); Mean Platelet Volume 10.5 fL (7.4-10.4); Monocytes # 0.8 10^3/uL (0.2-0.9); Monocytes % 4.8 %; Neutrophils # 13.61 10^3/uL (1.8-7.7); Neutrophils % 79.5 %; Nucleated Red Blood Cells % 0 %; Platelet Count 294 10^3/cmm (157-399); Red Blood Count 5.12 10^6/uL (3.85-5.65); Red Cell Distribution Width 12.5 % (12.1-15.1); White Blood Count 17.12 10^3/uL (3.29-11.43)
--- NOTE | 2024-08-31 12:14 | XR_ITS ---
WS: [id number] Exam: XR chest 1V portable [id number] Date/Time of Exam: 08/31/2024 12:26 PM Reason For Exam: sob Comparison 06/19/2023. Lungs are clear and fully expanded. Normal cardiomediastinal silhouette and regional bony elements. No pleural effusions. XR/XR chest 1V portable [id number] IMPRESSION: 1. Negative chest.
[2024-08-31 12:29] LABS: Alanine Aminotransferase 18 U/L (0-41); Albumin Level 4.6 g/dL (3.5-5.2); Alkaline Phosphatase 102 U/L (40-130); Anion Gap 18.7 (5-19); Aspartate Amino Transferase 18 U/L (0-40); Blood Urea Nitrogen 8 mg/dL (6-20); Calcium 9.5 mg/dL (8.5-10.5); Carbon Dioxide 23 mmol/L (22-29); Chloride 104 mmol/L (98-107); Creatinine Clr Calc Pharmacy 114.1484; Globulin 2.9 g/dL (1.3-4.6); Glucose 106 mg/dL (65-115); Lipase 25 U/L (13-60); Osmolality Calculated 291 mOsm/kg (285-295); Potassium 4.7 mmol/L (3.5-5.1); Sodium 141 mmol/L (136-145); Total Bilirubin 0.5 mg/dL (0.15-1.2); Total Protein 7.5 g/dL (6.6-8.7)
--- NOTE | 2024-08-31 12:52 | ED_ITS ---
HPI - Nausea/Vomiting/Diarrhea 2 General: Chief complaint: Nausea/Vomiting/Diarrhea Stated complaint: n/v/f/d, abd pain Time Seen by Provider: 08/31/24 11:43 History of Present Illness: 34-year-old male presents emergency room with complaints of persistent nausea and vomiting. Patient admits to daily use of marijuana. He also is a fairly heavy drinker he quit for 2 weeks drank quite a bit of whiskey last night he stopped around 11:00 he has epigastric abdominal pain and cramping persistent vomiting without any hematochezia or hematemesis no coffee-ground emesis. Vomitus noted at the bedside was bilious in nature. He denies dysuria change or frequency or fever Associated nausea: Yes Associated symtoms: Reports nausea; Denies chest pain or dysuria Related Data Previous Rx's ?Medication ?Instructions ?Recorded pantoprazole 40 mg tablet,delayed 40 mg PO DAILY #30 t abs 08/31/24 release (Protonix) promethazine 25 mg tablet 25 mg PO Q6H PRN nausea and 08/31/24 vomiting #20 tabs Allergies Allergy/AdvReac Type Severity Reaction Status Date / Time No Known Allergies Allergy Verified 08/11/24 13:57 Review of Systems 2 Const: Denies: fever(s) or chills Card: Denies: chest pain Resp: Denies: dyspnea GI: Reports: abdominal pain, nausea and vomiting : Denies: dysuria, urinary frequency or urinary urgency Musc: Denies: neck pain or back pain Skin/Breast: Denies: rash PFSH ED 2 PFSH: Medical History Severe dental caries Tooth abscess Chronic meniscal tear of knee Gross hematuria Family History Family/Other Diabetes Social History Smoking and tobacco/nicotine status: current every day tobacco/nicotine user Alcohol intake: never Substance/Drug Use: never Marital status: Single Current occupational status: unemployed Physical Exam 2 Const: GENERAL APPEARANCE: cooperative ORIENTATION/CONSCIOUSNESS: Yes awake, Yes oriented to person, Yes oriented to place and Yes oriented to time HENMT: COMMON NORMALS: normocephalic, atraumatic and hearing grossly normal bilaterally HEAD & SCALP: normocephalic and atraumatic Resp: COMMON NORMALS: normal respiratory effort, No retractions, No use of accessory muscles and clear to auscultation bilaterally AUSCULTATION: clear to auscultation bilaterally Cardio: COMMON NORMALS: regular rate, regular rhythm and No murmurs present (Cardio) RATE: regular rate RHYTHM: regular rhythm GI: COMMON NORMALS: Soft to palpation and No hepatosplenomegaly present A USCULTATION: Yes normoactive bowel sounds PALPATION: Yes Soft to palpation, No Tenderness to palpation present (GI), No Guarding due to palpation present (GI) and Yes No hepatosplenomegaly present Extremity: COMMON NORMALS: normal to inspection, capillary refill normal, no clubbing, cyanosis or edema, no calf tenderness and no pedal edema Neuro: SENSORIUM/ORIENTATION: Yes oriented to person, Yes oriented to place and Yes oriented to time Skin: COMMON NORMALS: no rashes or lesions noted GENERAL SKIN EXAM: no rashes or lesions noted Course 2 Vital Signs: Vital signs: Vital Signs Temperature 97.4 F L 08/31/24 11:39 Pulse Rate 102 H 08/31/24 11:39 Respiratory Rate 22 H 08/31/24 11:39 Blood Pressure 139/84 08/31/24 11:39 Pulse Oximetry 99 08/31/24 11:39 Oxygen Delivery Me thod Room Air 08/31/24 11:39 MDM - Nausea/Vomiting/Diarrhea Medical Decision Making Differential diagnosis includes acute cholecystitis appendicitis pancreatitis reflux peptic ulcer disease Patient is nausea vomiting markedly improved after Haldol and Ativan. CT shows some gastral thickening. I think it is partly due to his alcohol use last night he states he feels much better. Will discharge patient home clear liquid diet recommend abstinence from alcohol decrease marijuana use return if has further problems Differential Diagnosis Likely gastroenteritis and dehydration Medical Records I reviewed the patient's medical records. Lab Data I reviewed the patient's lab results. 08/31/24 11:54 08/31/24 11:54 Radiology Impressions Chest X-Ray 08/31/24 12:14 IMPRESSION: 1. Negative chest. Abdomen/Pelvis CT 08/31/24 13:00 IMPRESSION: 1. Tiny fat-containing umbilical hernia. 2. Diffuse gastric wall thickening with enhancement with a rugal thickening suspicious for gastritis. This could be further evaluated with endoscopy. 3. Small esophageal hiatal hernia. 4. Diffuse intramural fat deposition involving the colon nonspecific but has been associated with inflammatory bowel disease. Recommend correlation with clinical history. 5. No other acute findings. Laboratory Results WBC 17.12 10^3/uL (3.29-11.43) H 08/31/24 11:54 RBC 5.12 10^6/uL (3.85-5.65) 08/31/24 11:54 Hgb 16.20 g/dL (11.27-16.99) 08/31/24 11:54 Hct 48.3 % (37-53) 08/31/24 11:54 MCV 94.3 fl (82-101) 08/31/24 11:54 MCH 31.6 pg (27-33) 08/31/24 11:54 MCHC 33.5 g/dL (30-55) 08/31/24 11:54 RDW 12.5 % (12.1-15.1) 08/31/24 11:54 Plt Count 294 10^3/cmm (157-399) 08/31/24 11:54 MPV 10.5 fL (7.4-10.4) H 08/31/24 11:54 Neut % (Auto) 79.5 % 08/31/24 11:54 Lymph % (Auto) 13.7 % 08/31/24 11:54 Elk % (Auto) 4.8 % 08/31/24 11:54 Eos % (Auto) 1.1 % 08/31/24 11:54 Baso % (Auto) 0.5 % 08/31/24 11:54 Neut # (Auto) 13.61 10^3/uL (1.8-7.7) H 08/31/24 11:54 Lymph # (Auto) 2.3 10^3/uL (0.8-4.8) 08/31/24 11:54 Elk # (Auto) 0.8 10^3/uL (0.2-0.9) 08/31/24 11:54 Eos # (Auto) 0.2 10^3/uL (0.0-0.8) 08/31/24 11:54 Baso # (Auto) 0.1 10^3/uL (0.0-0.1) 08/31/24 11:54 Nucleated RBC % (auto) 0 % 08/31/24 11:54 Nucleated RBCs # 0.0 /100WBC 08/31/24 11:54 Sodium 141 mmol/L (136-145) 08/31/24 11:54 Potassium 4.7 mmol/L (3.5-5.1) 08/31/24 11:54 Chloride 104 mmol/L (98-107) 08/31/24 11:54 Carbon Dioxide 23 mmol/L (22-29) 08/31/24 11:54 Anion Gap 18.7 (5-19) 08/31/24 11:54 BUN 8 mg/dL (6-20) 08/31/24 11:54 Creatinine 1.0 mg/dL (0.7-1.2) 08/31/24 11:54 GFR Calculation 85.0 mL/min (90-130) L 08/31/24 11:54 Glucose 106 mg/dL (65-115) 08/31/24 11:54 Calculated Osmolality 291 mOsm/kg (285-295) 08/31/24 11:54 Calcium 9.5 mg/dL (8.5-10.5) 08/31/24 11:54 Total Bilirubin 0.5 mg/dL (0.15-1.2) 08/31/24 11:54 AST 18 U/L (0-40) 08/31/24 11:54 ALT 18 U/L (0-41) 08/31/24 11:54 Alkaline Phosphatase 102 U/L (40-130) 08/31/24 11:54 Total Protein 7.5 g/dL (6.6-8.7) 08/31/24 11:54 Albumin 4.6 g/dL (3.5-5.2) 08/31/24 11:54 Globulin 2.9 g/dL (1.3-4.6) 08/31/24 11:54 Lipase 25 U/L (13-60) 08/31/24 11:54 All radiology interpretation(s) finalized by discharge Discharge Plan Discharge Patient Disposition: Home Clinical Impression: Alcoholic gastritis, Cannabinoid hyperemesis syndrome Condition: Stable Prescriptions: New promethazine 25 mg tablet 25 mg PO Q6H PRN (Reason: nausea and vomiting) Qty: 20 0RF pantoprazole [Protonix] 40 mg tablet,delayed release (DR/EC) 40 mg PO DAILY Qty: 30 0RF Discharge Orders: Discharge ED (Routine); Ordered 08/31/24 Ordered By: Douglas Blankenship Discharge Diet: As Directed Discharge Activity: Increase activity as tolerated Patient Instructions: Opioid Safety, Pain Management Activity Restrictions/Additional Instructions: Thank you for choosing [facility] for your healthcare needs today. It is very important that you follow up as instructed or that you return to the Emergency Department should you have concerns or if your condition changes or worsens in any way. You were seen in the emergency room with complaints of abdominal pain nausea vomiting. CT scan showed thickening of your stomach wall suggestive of gastritis. Suspect this is in part related to the alcohol you were drinking glass. Condition with the persistent nausea and vomiting he had it that appears to have been hyperemesis cannabinoid syndrome. Recommend you cut back on the amount of marijuana products you use and abstain from alcohol. We gave you pantoprazole to use to help heal the stomach up promethazine for persistent nausea vomiting clear liquid diet for 24 to 48 hours and advance as tolerated if symptoms persist follow-up with your primary care doctor you may need to have an EGD Print Language: Greenlandic Coding Level of Care Code ED Supervisor [employer] for Rj Islas
--- NOTE | 2024-08-31 13:00 | CT_ITS ---
WS: [id number] CT ABDOMEN PELVIS TECHNIQUE: Contrast-enhanced CT of the abdomen and pelvis with coronal and sagittal reformatted images. CLINICAL INFORMATION: abd pain COMPARISON: CT 2020 DLP: 592.[address] scans at [facility] use at least one of these dose optimization techniques: automated exposure control; mA and/or kV adjustment per patient size (includes targeted exams where dose is matched to clinical indication); or iterative reconstruction. FINDINGS: Tiny fat-containing umbilical hernia. Hepatomegaly. Diffuse fatty infiltration of the liver. Normal spleen. Diffuse gastric wall thickening with gastritis. Small esophageal hiatal hernia. Adrenal glands are normal. Small LEFT renal cyst. No hydronephrosis in either kidney. Normal pancreatic parenchymal enhancement. Normal caliber abdominal aorta. Celiac and SMA are patent Intramural fat deposition in the colon nonspecific but can be seen in the setting of inflammatory bowel disease. Recommend correlation with clinical history. No evidence of high-grade small or large bowel obstruction. Prostate calcification. No other acute findings. CT/CT abdomen pelvis w con* [id number] IMPRESSION: 1. Tiny fat-containing umbilical hernia. 2. Diffuse gastric wall thickening with enhancement with a rugal thickening bolden spicious for gastritis. This could be further evaluated with endoscopy. 3. Small esophageal hiatal hernia. 4. Diffuse intramural fat deposition involving the colon nonspecific but has b een associated with inflammatory bowel disease. Recommend correlation with clin ical history. 5. No other acute findings.
[2024-08-31] MEDS: iohexol 350 mg/mL 500 mL Btl (per mL) IV (13:06)
[2024-08-31] MEDS: LORazepam 2 mg/mL INJ 1 mL IVP (13:16)
[2024-08-31] MEDS: haloperidol inj 5 mg/mL INJ 1 mL 2.5 MG IVP (13:16)
== END 2024-08-31 14:11 | disposition home or self-care (01) ==
PROVIDERS: Physician Assistant; Emergency Provider Family Medicine
DX: K29.20 Alcoholic gastritis without bleeding (principal); R11.2 Nausea with vomiting, unspecified; Z72.0 Tobacco use
CPT/HCPCS: 36415; 71045; 74177; 80053; 83690; 85025; 93005; 96374; 96375; 99285; J1630; J2060

== ENCOUNTER 2024-09-08 15:13 | Emergency (ER) | payer SELFPAY ==
[2024-09-08 15:15] VITALS: BP 149/94; PULSE 100; TEMP 36.7; O2SAT 99; BMI 27.2
--- NOTE | 2024-09-08 15:41 | ECG_ITS ---
[facility] [place] [facility] Date: 2024-09-08 Pat Name: Jose Yates Department: Room: Gender: Male Length Control Tester: : 1990 Requested By: Douglas Fuentes Order Number: [id number] Demetrius MD: Carlitos Owen M.D. Measurements Intervals [place] Rate: 80 P: 60 WV: 127 QRS: 78 QRSD: 94 T: 63 QT: 368 QTc: 425 Interpretive Statements SINUS RHYTHM POSSIBLE RIGHT VENTRICULAR CONDUCTION DELAY [RSR (QR) IN V1/V2] Compared to ECG 08/31/2024 11:41:12 Sinus bradycardia no longer present Sinus arrhythmia no longer present Electronically Signed On 09-13-2024 10:15:31 CDT by Carlitos Owen M.D. [email or web address]
--- NOTE | 2024-09-08 15:41 | XR_ITS ---
WS: [id number] Portable AP upright chest, 09/08/2024 Clinical Data: chest pain Comparison: Portable chest, 08/31/2024 Findings: No nodules, masses or effusions are seen. The heart is normal. The pulmonary vascularity is not increased. No pneumonia or pneumothorax is seen. Monitor leads are on the chest wall. XR/XR chest 1V portable [id number] Impression: Negative chest.
--- NOTE | 2024-09-08 15:41 | ED_ITS ---
Documented by User: Douglas Blankenship DO 09/09/24 13:45 HPI - Anxiety 2 General: Chief Complaint: Anxiety Stated Complaint: chest pain, sob Time Seen by Provider: 09/08/24 15:31 History of Present Illness: 34-year-old male presents emergency room complaining of intermittent chest pain and shortness of breath. Patient is a regular smoker he is also very regular drinker. He had been drinking half to three quarters of 1/5 of whiskey per day. He stopped last Clifford and then over the last few weeks began again last 3 days has been drinking a full fifth per day. He is having epigastric pain radiating up into his chest at times. He denies any hematemesis or coffee- ground emesis he has had significant amount of nausea though no melena. Associated symptoms: Reports nausea; Deny chest pain, chills, fever(s) or vomiting Related Data Previous Rx's ?Medication ?Instructions ?Recorded pantoprazole 40 mg tablet,delayed 40 mg PO DAILY #30 t abs 08/31/24 release (Protonix) promethazine 25 mg tablet 25 mg PO Q6H PRN nausea and 08/31/24 vomiting #20 tabs hydroxyzine HCl 25 mg tablet 25 mg PO Q8H PRN anxiety #30 tabs 09/08/24 sucralfate 1 gram tablet (Carafate) 1 g PO TID 4 weeks #84 tabs 09/08/24 Allergies Allergy/AdvReac Type Severity Reaction Status Date / Time No Known Allergies Allergy Verified 09/08/24 15:25 Review of Systems 2 Const: Denies: fever(s) or chills Card: Denies: chest pain Resp: Denies: dyspnea GI: Reports: abdominal pain and nausea; Denies: vomiting, hematemesis, coffee ground emesis, hematochezia or melena : Denies: dysuria, urinary frequency or urinary urgency Musc: Denies: neck pain or back pain Skin/Breast: Denies: rash PFSH ED 2 PFSH: Medical History Severe dental caries Tooth abscess Chronic meniscal tear of knee Gross hematuria Family History Family/Other Diabetes Social History Smoking and tobacco/nicotine status: current every day tobacco/nicotine user Alcohol intake: never Substance/Drug Use: never Marital status: Single Current occupational status: unemployed Physical Exam 2 Const: GENERAL APPEARANCE: cooperative ORIENTATION/CONSCIOUSNESS: Yes awake, Yes oriented to person, Yes oriented to place and Yes oriented to time HENMT: COMMON NORMALS: normocephalic, atraumatic and hearing grossly normal bilaterally HEAD & SCALP: normocephalic and atraumatic Resp: COMMON NORMALS: normal respiratory effort, No retractions, No use of accessory muscles and clear to auscultation bilaterally AUSCULTATION: clear to auscultation bilaterally Cardio: COMMON NORMALS: regular rate, regular rhythm and No murmurs present (Cardio) RATE: regular rate RHYTHM: regular rhythm GI: COMMON NORMALS: Soft to palpation and No hepatosplenomegaly present A USCULTATION: Yes normoactive bowel sounds PALPATION: Yes Soft to palpation, No Tenderness to palpation present (GI), No Guarding due to palpation present (GI) and Yes No hepatosplenomegaly present Extremity: COMMON NORMALS: normal to inspection, capillary refill normal, no clubbing, cyanosis or edema, no calf tenderness and no pedal edema Neuro: SENSORIUM/ORIENTATION: Yes oriented to person, Yes oriented to place and Yes oriented to time Skin: COMMON NORMALS: no rashes or lesions noted GENERAL SKIN EXAM: no rashes or lesions noted Course 2 Vital Signs: Vital signs: Vital Signs Temperature 98.1 F 09/08/24 15:15 Pulse Rate 98 09/08/24 18:57 Respiratory Rate 17 09/08/24 18:57 Blood Pressure 158/70 09/08/24 18:57 Pulse Oximetry 98 09/08/24 18:57 Oxygen Delivery Me thod Room Air 09/08/24 18:36 MDM - Anxiety Medical Decision Making Cardiac enzymes negative CTA chest is pending. Care signed out to Dr. Cabrales at change of shift. See final notes for diagnosis and disposition. Patient care transitioned me at shift change. Patient is here with anxiety and chest pain. CTA shows no PE. He does have some gastric wall thickening which might indicate some gastritis. Given his history of alcohol abuse this will be treated with some Carafate. He needs to follow-up with his primary care provider. Lab Data 09/08/24 15:46 09/08/24 15:46 Radiology Impressions Chest X-Ray 09/08/24 15:41 Impression: Negative chest. Abdomen/Pelvis CT 09/08/24 16:02 IMPRESSION: 1. Mild gastric wall thickening has improved some from prior. Ongoing gastritis is possible. 2. Intramural fatty deposition in the colon can be seen with chronic inflammation. 3. Remainder stable. Laboratory Results WBC 14.40 10^3/uL (3.29-11.43) H 09/08/24 15:46 RBC 5.20 10^6/uL (3.85-5.65) 09/08/24 15:46 Hgb 16.60 g/dL (11.27-16.99) 09/08/24 15:46 Hct 48.1 % (37-53) 09/08/24 15:46 MCV 92.5 fl (82-101) 09/08/24 15:46 MCH 31.9 pg (27-33) 09/08/24 15:46 MCHC 34.5 g/dL (30-55) 09/08/24 15:46 RDW 13.0 % (12.1-15.1) 09/08/24 15:46 Plt Count 244 10^3/cmm (157-399) 09/08/24 15:46 MPV 10.5 fL (7.4-10.4) H 09/08/24 15:46 Neut % (Auto) 73.0 % 09/08/24 15:46 Lymph % (Auto) 18.3 % 09/08/24 15:46 [place] % (Auto) 6.5 % 09/08/24 15:46 Eos % (Auto) 1.2 % 09/08/24 15:46 Baso % (Auto) 0.6 % 09/08/24 15:46 Neut # (Auto) 10.51 10^3/uL (1.8-7.7) H 09/08/24 15:46 Lymph # (Auto) 2.6 10^3/uL (0.8-4.8) 09/08/24 15:46 [place] # (Auto) 0.9 10^3/uL (0.2-0.9) 09/08/24 15:46 Eos # (Auto) 0.2 10^3/uL (0.0-0.8) 09/08/24 15:46 Baso # (Auto) 0.1 10^3/uL (0.0-0.1) 09/08/24 15:46 Nucleated RBC % (auto) 0 % 09/08/24 15:46 Nucleated RBCs # 0.0 /100WBC 09/08/24 15:46 Specimen Type Arterial 09/08/24 15:50 Sample Site Radial, left 09/08/24 15:50 ABG pH 7.50 (7.35-7.45) H 09/08/24 15:50 ABG pCO2 30.6 mmHg (35-45) L 09/08/24 15:50 ABG pO2 96.3 mmHg (80.0-100.0) 09/08/24 15:50 ABG PO2/FiO2 Ratio 458 09/08/24 15:50 ABG HCO3 23.8 mmol/L (22-26) 09/08/24 15:50 ABG O2 Saturation 98.9 09/08/24 15:50 ABG Base Excess 1.6 mmol/L (-2.0-2.0) 09/08/24 15:50 Sylvain Test Pos 09/08/24 15:50 A-a O2 Gradient 1.7 mmHg (5-10) L 09/08/24 15:50 Hematocrit 51.8 % (42-52) 09/08/24 15:50 Hgb O2 Saturation 93.4 % (95-100) L 09/08/24 15:50 Carboxyhemoglobin 4.6 %THgb (0.4-20.1) 09/08/24 15:50 Methemoglobin 0.9 % (0.4-1.5) 09/08/24 15:50 Total Hemoglobin 16.9 g/dL (14-18) 09/08/24 15:50 Sodium 136.0 mmol/L (131-143) 09/08/24 15:50 Potassium 3.5 mmol/L (3.5-5.0) 09/08/24 15:50 Glucose 106.0 mg/dL (70-115) 09/08/24 15:50 Ionized Calcium 1.2 mmol/L (1.1-1.4) 09/08/24 15:50 O2 Delivery Device Room air 09/08/24 15:50 FiO2 21.0 % 09/08/24 15:50 Wildlife Management Professor ID Travis 09/08/24 15:50 Sodium 137 mmol/L (136-145) 09/08/24 15:46 Potassium 4.2 mmol/L (3.5-5.1) 09/08/24 15:46 Chloride 99 mmol/L (98-107) 09/08/24 15:46 Carbon Dioxide 23 mmol/L (22-29) 09/08/24 15:46 Anion Gap 19.2 (5-19) H 09/08/24 15:46 BUN 7 mg/dL (6-20) 09/08/24 15:46 Creatinine 1.0 mg/dL (0.7-1.2) 09/08/24 15:46 GFR Calculation 85.0 mL/min (90-130) L 09/08/24 15:46 Glucose 100 mg/dL (65-115) 09/08/24 15:46 Calculated Osmolality 282 mOsm/kg (285-295) L 09/08/24 15:46 Calcium 9.6 mg/dL (8.5-10.5) 09/08/24 15:46 Total Bilirubin 0.8 mg/dL (0.15-1.2) 09/08/24 15:46 AST 33 U/L (0-40) 09/08/24 15:46 ALT 38 U/L (0-41) 09/08/24 15:46 Alkaline Phosphatase 114 U/L (40-130) 09/08/24 15:46 Ammonia 33 umol/L (16-60) 09/08/24 16:07 Troponin T Baseline < 6 ng/L (0-15) 09/08/24 15:46 Troponin T 120 Minute 6.00 ng/L (0-15) 09/08/24 17:34 Delta Troponin T 0.04913 ABS# (0-10) 09/08/24 17:34 Total Protein 6.9 g/dL (6.6-8.7) 09/08/24 15:46 Albumin 4.6 g/dL (3.5-5.2) 09/08/24 15:46 Globulin 2.3 g/dL (1.3-4.6) 09/08/24 15:46 Lipase 16 U/L (13-60) 09/08/24 16:07 Discharge Plan Discharge Patient Disposition: Home Clinical Impression: Anxiety, Gastritis Condition: Stable Prescriptions: New sucralfate [Carafate] 1 gram tablet 1 g PO TID 28 Days Qty: 84 0RF Rx Instructions: with meals hydroxyzine HCl 25 mg tablet 25 mg PO Q8H PRN (Reason: anxiety) Qty: 30 0RF No Action promethazine 25 mg tablet 25 mg PO Q6H PRN (Reason: nausea and vomiting) Qty: 20 0RF pantoprazole [Protonix] 40 mg tablet,delayed release (DR/EC) 40 mg PO DAILY Qty: 30 0RF Discharge Orders: Discharge ED (Routine); Ordered 09/08/24 Ordered By: Aline Cabrales Patient Instructions: Gastritis (ED), Opioid Safety, Pain Management Activity Restrictions/Additional Instructions: Thank you for choosing [facility] for your healthcare needs today. You have been screened and evaluated and felt safe for discharge. Health conditions do change or evolve sometimes and as such it is important that you follow up with your Primary Doctor to be re checked, 3-5 days is a general good time frame for follow up. You are always welcome to return to the ED for re assessment if your symptoms are worsening or you have new concerns Print Language: Malawian Coding Level of Care Code ED Permaculture Designer for Chg Fwd Documented by User: Aline Cabrales MD 09/08/24 18:52 HPI - Anxiety 2 General: Chief Complaint: Anxiety Stated Complaint: chest pain, sob Time Seen by Provider: 09/08/24 15:31 Related Data Previous Rx's ?Medication ?Instructions ?Recorded pantoprazole 40 mg tablet,delayed 40 mg PO DAILY #30 t abs 08/31/24 release (Protonix) promethazine 25 mg tablet 25 mg PO Q6H PRN nausea and 08/31/24 vomiting #20 tabs hydroxyzine HCl 25 mg tablet 25 mg PO Q8H PRN anxiety #30 tabs 09/08/24 sucralfate 1 gram tablet (Carafate) 1 g PO TID 4 weeks #84 tabs 09/08/24 Allergies Allergy/AdvReac Type Severity Reaction Status Date / Time No Known Allergies Allergy Verified 09/08/24 15:25 PFSH ED 2 PFSH: Medical History Severe dental caries Tooth abscess Chronic meniscal tear of knee Gross hematuria Family History Family/Other Diabetes Social History Smoking and tobacco/nicotine status: current every day tobacco/nicotine user Alcohol intake: never Substance/Drug Use: never Marital status: Single Current occupational status: unemployed Course 2 Vital Signs: Vital signs: Vital Signs Temperature 98.1 F 09/08/24 15:15 Pulse Rate 98 09/08/24 18:57 Respiratory Rate 17 09/08/24 18:57 Blood Pressure 158/70 09/08/24 18:57 Pulse Oximetry 98 09/08/24 18:57 Oxygen Delivery Me thod Room Air 09/08/24 18:36 MDM - Anxiety Medical Decision Making Patient care transitioned me at shift change. Patient is here with anxiety and chest pain. CTA shows no PE. He does have some gastric wall thickening which might indicate some gastritis. Given his history of alcohol abuse this will be treated with some Carafate. He needs to follow-up with his primary care provider. Lab Data 09/08/24 15:46 09/08/24 15:46 Radiology Impressions Chest X-Ray 09/08/24 15:41 Impression: Negative chest. Abdomen/Pelvis CT 09/08/24 16:02 IMPRESSION: 1. Mild gastric wall thickening has improved some from prior. Ongoing gastritis is possible. 2. Intramural fatty deposition in the colon can be seen with chronic inflammation. 3. Remainder stable. Laboratory Results WBC 14.40 10^3/uL (3.29-11.43) H 09/08/24 15:46 RBC 5.20 10^6/uL (3.85-5.65) 09/08/24 15:46 Hgb 16.60 g/dL (11.27-16.99) 09/08/24 15:46 Hct 48.1 % (37-53) 09/08/24 15:46 MCV 92.5 fl (82-101) 09/08/24 15:46 MCH 31.9 pg (27-33) 09/08/24 15:46 MCHC 34.5 g/dL (30-55) 09/08/24 15:46 RDW 13.0 % (12.1-15.1) 09/08/24 15:46 Plt Count 244 10^3/cmm (157-399) 09/08/24 15:46 MPV 10.5 fL (7.4-10.4) H 09/08/24 15:46 Neut % (Auto) 73.0 % 09/08/24 15:46 Lymph % (Auto) 18.3 % 09/08/24 15:46 [place] % (Auto) 6.5 % 09/08/24 15:46 Eos % (Auto) 1.2 % 09/08/24 15:46 Baso % (Auto) 0.6 % 09/08/24 15:46 Neut # (Auto) 10.51 10^3/uL (1.8-7.7) H 09/08/24 15:46 Lymph # (Auto) 2.6 10^3/uL (0.8-4.8) 09/08/24 15:46 [place] # (Auto) 0.9 10^3/uL (0.2-0.9) 09/08/24 15:46 Eos # (Auto) 0.2 10^3/uL (0.0-0.8) 09/08/24 15:46 Baso # (Auto) 0.1 10^3/uL (0.0-0.1) 09/08/24 15:46 Nucleated RBC % (auto) 0 % 09/08/24 15:46 Nucleated RBCs # 0.0 /100WBC 09/08/24 15:46 Specimen Type Arterial 09/08/24 15:50 Sample Site Radial, left 09/08/24 15:50 ABG pH 7.50 (7.35-7.45) H 09/08/24 15:50 ABG pCO2 30.6 mmHg (35-45) L 09/08/24 15:50 ABG pO2 96.3 mmHg (80.0-100.0) 09/08/24 15:50 ABG PO2/FiO2 Ratio 458 09/08/24 15:50 ABG HCO3 23.8 mmol/L (22-26) 09/08/24 15:50 ABG O2 Saturation 98.9 09/08/24 15:50 ABG Base Excess 1.6 mmol/L (-2.0-2.0) 09/08/24 15:50 Sylvain Test Pos 09/08/24 15:50 A-a O2 Gradient 1.7 mmHg (5-10) L 09/08/24 15:50 Hematocrit 51.8 % (42-52) 09/08/24 15:50 Hgb O2 Saturation 93.4 % (95-100) L 09/08/24 15:50 Carboxyhemoglobin 4.6 %THgb (0.4-20.1) 09/08/24 15:50 Methemoglobin 0.9 % (0.4-1.5) 09/08/24 15:50 Total Hemoglobin 16.9 g/dL (14-18) 09/08/24 15:50 Sodium 136.0 mmol/L (131-143) 09/08/24 15:50 Potassium 3.5 mmol/L (3.5-5.0) 09/08/24 15:50 Glucose 106.0 mg/dL (70-115) 09/08/24 15:50 Ionized Calcium 1.2 mmol/L (1.1-1.4) 09/08/24 15:50 O2 Delivery Device Room air 09/08/24 15:50 FiO2 21.0 % 09/08/24 15:50 Wildlife Management Professor ID [place] 09/08/24 15:50 Sodium 137 mmol/L (136-145) 09/08/24 15:46 Potassium 4.2 mmol/L (3.5-5.1) 09/08/24 15:46 Chloride 99 mmol/L (98-107) 09/08/24 15:46 Carbon Dioxide 23 mmol/L (22-29) 09/08/24 15:46 Anion Gap 19.2 (5-19) H 09/08/24 15:46 BUN 7 mg/dL (6-20) 09/08/24 15:46 Creatinine 1.0 mg/dL (0.7-1.2) 09/08/24 15:46 GFR Calculation 85.0 mL/min (90-130) L 09/08/24 15:46 Glucose 100 mg/dL (65-115) 09/08/24 15:46 Calculated Osmolality 282 mOsm/kg (285-295) L 09/08/24 15:46 Calcium 9.6 mg/dL (8.5-10.5) 09/08/24 15:46 Total Bilirubin 0.8 mg/dL (0.15-1.2) 09/08/24 15:46 AST 33 U/L (0-40) 09/08/24 15:46 ALT 38 U/L (0-41) 09/08/24 15:46 Alkaline Phosphatase 114 U/L (40-130) 09/08/24 15:46 Ammonia 33 umol/L (16-60) 09/08/24 16:07 Troponin T Baseline < 6 ng/L (0-15) 09/08/24 15:46 Troponin T 120 Minute 6.00 ng/L (0-15) 09/08/24 17:34 Delta Troponin T 0.53358 ABS# (0-10) 09/08/24 17:34 Total Protein 6.9 g/dL (6.6-8.7) 09/08/24 15:46 Albumin 4.6 g/dL (3.5-5.2) 09/08/24 15:46 Globulin 2.3 g/dL (1.3-4.6) 09/08/24 15:46 Lipase 16 U/L (13-60) 09/08/24 16:07 All radiology interpretation(s) finalized by discharge Discharge Plan Discharge Patient Disposition: Home Clinical Impression: Anxiety, Gastritis Condition: Stable Prescriptions: New sucralfate [Carafate] 1 gram tablet 1 g PO TID 28 Days Qty: 84 0RF Rx Instructions: with meals hydroxyzine HCl 25 mg tablet 25 mg PO Q8H PRN (Reason: anxiety) Qty: 30 0RF No Action promethazine 25 mg tablet 25 mg PO Q6H PRN (Reason: nausea and vomiting) Qty: 20 0RF pantoprazole [Protonix] 40 mg tablet,delayed release (DR/EC) 40 mg PO DAILY Qty: 30 0RF Discharge Orders: Discharge ED (Routine); Ordered 09/08/24 Ordered By: Aline Cabrales Patient Instructions: Gastritis (ED), Opioid Safety, Pain Management Activity Restrictions/Additional Instructions: Thank you for choosing [facility] for your healthcare needs today. You have been screened and evaluated and felt safe for discharge. Health conditions do change or evolve sometimes and as such it is important that you follow up with your Primary Doctor to be re checked, 3-5 days is a general good time frame for follow up. You are always welcome to return to the ED for re assessment if your symptoms are worsening or you have new concerns Print Language: Malawian Coding Level of Care Code ED Permaculture Designer for Rj Islas
[2024-09-08] MEDS: aspirin 81 mg Chew Tablet 324 MG PO (15:42)
[2024-09-08 16:01] LABS: ABG PCO2 30.6 mmHg (35-45); Alveolar-Arterial Oxygen Gradi 1.7 mmHg (5-10); Arterial Blood Gas Hematocrit 51.8 % (42-52); Base Excess ABG 1.6 mmol/L (-2.0-2.0); Blood Gas Allen Test Pos; Blood Gas Operator Identificat WALCI; Blood Gas Sample Site Radial, left; Blood Gas Sample Type Arterial; Carboxyhemoglobin 4.6 %THgb (0.4-20.1); HCO3 ABG 23.8 mmol/L (22-26); HGB O2 Sat 93.4 % (95-100); Ionized Calcium Level - ABG 1.2 mmol/L (1.1-1.4); Methemoglobin 0.9 % (0.4-1.5); Oxygen Device ROOM AIR; Oxygen Saturation ABG 98.9; PO2 ABG 96.3 mmHg (80.0-100.0); PO2 FiO2 Ratio Arterial Blood 458; Potassium Level - ABG 3.5 mmol/L (3.5-5.0); Total Hemoglobin 16.9 g/dL (14-18)
[2024-09-08 16:01] LABS: Basophils # 0.1 10^3/uL (0.0-0.1); Basophils % 0.6 %; Eosinophils # 0.2 10^3/uL (0.0-0.8); Eosinophils % 1.2 %; Hematocrit 48.1 % (37-53); Lymphocytes # 2.6 10^3/uL (0.8-4.8); Lymphocytes % 18.3 %; Mean Corpuscular HGB Conc 34.5 g/dL (30-55); Mean Corpuscular Hemoglobin 31.9 pg (27-33); Mean Corpuscular Volume 92.5 fl (82-101); Mean Platelet Volume 10.5 fL (7.4-10.4); Monocytes # 0.9 10^3/uL (0.2-0.9); Monocytes % 6.5 %; Neutrophils # 10.51 10^3/uL (1.8-7.7); Nucleated Red Blood Cells % 0 %; Platelet Count 244 10^3/cmm (157-399)
--- NOTE | 2024-09-08 16:02 | CTR_ITS ---
PROCEDURE INFORMATION: Exam: CT Abdomen And Pelvis With Contrast Exam date and time: 09/08/2024 5:21 PM Age: 34 years old Clinical indication: Abdominal pain; Generalized; Additional info: Abd pain TECHNIQUE: Imaging protocol: Computed tomography of the abdomen and pelvis with contrast. Radiation optimization: All CT scans at this facility use at least one of these dose optimization techniques: automated exposure control; mA and/or kV adjustment per patient size (includes targeted exams where dose is matched to clinical indication); or iterative reconstruction. Contrast material: OMNIPAQUE 350; Contrast volume: 100 ml; Contrast route: INTRAVENOUS (IV); COMPARISON: CT abdomen pelvis w con* [id number] 08/31/2024 1:03 PM RADIATION DOSE METRICS: Total DLP (mGy-cm): 622.63 FINDINGS: Diaphragm: Small sliding-type hiatal hernia. Liver: The liver is enlarged, measuring 18.6 cm craniocaudal. Gallbladder and biliary ducts: Normal. No calcified stones. No ductal dilation. Pancreas: Normal. No ductal dilation. Spleen: Normal. No splenomegaly. Adrenal glands: Normal. No mass. Kidneys and ureters: Stable left renal cyst. Stomach and bowel: Mild gastric wall thickening appears improved from prior. No bowel obstruction. Redemonstrated intramural fatty deposition within the colon. Appendix: No evidence of appendicitis. Intraperitoneal space: Unremarkable. No free air. No significant fluid collection. Vasculature: Unremarkable. No abdominal aortic aneurysm. Lymph nodes: Unremarkable. No enlarged lymph nodes. Urinary bladder: Unremarkable as visualized. Reproductive: Unremarkable as visualized. Bones/joints: Unremarkable. No acute fracture. Soft tissues: Unremarkable. CT/CT abdomen pelvis w con* [id number] IMPRESSION: 1. Mild gastric wall thickening has improved some from prior. Ongoing gastritis is possible. 2. Intramural fatty deposition in the colon can be seen with chronic inflammation. 3. Remainder stable.
[2024-09-08 16:18] LABS: Troponin(5th) Baseline < 6 ng/L (0-15)
[2024-09-08 16:20] LABS: Alanine Aminotransferase 38 U/L (0-41); Albumin Level 4.6 g/dL (3.5-5.2); Alkaline Phosphatase 114 U/L (40-130); Anion Gap 19.2 (5-19); Aspartate Amino Transferase 33 U/L (0-40); Blood Urea Nitrogen 7 mg/dL (6-20); Calcium 9.6 mg/dL (8.5-10.5); Carbon Dioxide 23 mmol/L (22-29); Chloride 99 mmol/L (98-107); Creatinine Clr Calc Pharmacy 114.1484; Globulin 2.3 g/dL (1.3-4.6); Glucose 100 mg/dL (65-115); Osmolality Calculated 282 mOsm/kg (285-295); Potassium 4.2 mmol/L (3.5-5.1); Sodium 137 mmol/L (136-145); Total Bilirubin 0.8 mg/dL (0.15-1.2); Total Protein 6.9 g/dL (6.6-8.7)
[2024-09-08 16:29] LABS: Lipase 16 U/L (13-60)
[2024-09-08 16:30] VITALS: BP 138/89; PULSE 73; RESP 13; O2SAT 98
[2024-09-08 16:52] LABS: Ammonia 33 umol/L (16-60)
[2024-09-08 17:23] VITALS: BP 135/85; PULSE 74; RESP 13; O2SAT 97
[2024-09-08] MEDS: iohexol 350 mg/mL 500 mL Btl (per mL) IV (17:25)
--- NOTE | 2024-09-08 17:41 | ECG_ITS ---
[facility] Date: 2024-09-08 Pat Name: Jose Yates Department: Room: Gender: Male Fur Sorter: : 1990 Requested By: Douglas Fuentes Order Number: [id number] Demetrius MD: Carlitos Owen M.D. Measurements Intervals [place] Rate: 63 P: 26 AL: 117 QRS: 73 QRSD: 102 T: 55 QT: 410 QTc: 422 Interpretive Statements SINUS RHYTHM WITH SHORT AL INTERVAL POSSIBLE RIGHT VENTRICULAR CONDUCTION DELAY [RSR (QR) IN V1/V2] Compared to ECG 09/08/2024 15:20:15 Short AL interval now present Electronically Signed On 09-13-2024 10:38:51 CDT by Carlitos Owen M.D. [email or web address]
[2024-09-08 18:28] LABS: Troponin 5 2HR Delta 0.00001 ABS# (0-10)
[2024-09-08 18:36] VITALS: BP 135/76; PULSE 75; RESP 19; O2SAT 96
[2024-09-08 18:57] VITALS: BP 158/70; PULSE 98; RESP 17; O2SAT 98
== END 2024-09-08 18:58 | disposition home or self-care (01) ==
PROVIDERS: Family Medicine; Emergency Provider Emergency Medicine
DX: F41.9 Anxiety disorder, unspecified (principal); K29.70 Gastritis, unspecified, without bleeding; Z72.0 Tobacco use
CPT/HCPCS: 36415; 36600; 71045; 74177; 80051; 80053; 82140; 82330; 82805; 83690; 84484; 85025; 93005; 99285; J9999